=== PATIENT | male | born 1965 | race Caucasian/White ===

== ENCOUNTER 2021-06-15 07:14 | Emergency (ER) | payer MEDICAID ==
[~2021-06-15] VITALS: Ht 175.3 cm; Wt 71.2 kg
--- NOTE | 2021-06-15 07:36 | NUR ---
The patient is [id number], from street walking naked, admits on smoking meth this morning. The patient is alert and oriented x3. The patient denies SI/HI at this time. In room air and denies SOB. Respiraton regular and unlabored. Denies pain. Will continue to monitor the patient.
[2021-06-15 07:47] LABS: BASOPHILS # (AUTO) 0.1 K/uL (0.0-0.2); BASOPHILS % (AUTO) 0.7 % (0.0-2.0); EOSINOPHILS % (AUTO) 0.1 % (0.0-6.0); HEMATOCRIT 43 % (39-51); HEMOGLOBIN 14.7 g/dL (13.5-17.5); LYMPHOCYTES # (AUTO) 1.1 K/uL (0.8-4.8); LYMPHOCYTES % (AUTO) 12.3 % (20.0-44.0); MEAN CORPUSCULAR HGB CONC 35 g/dl (31.0-36.0); MEAN CORPUSCULAR VOLUME 106 fL (80-96); MONOCYTES % (AUTO) 10.7 % (2.0-12.0); NEUTROPHILS # (AUTO) 6.9 K/uL (1.8-8.9); NEUTROPHILS % (AUTO) 76.2 % (43.0-81.0); PLATELET COUNT (AUTO) 292 K/uL (150-450); RED BLOOD CELL COUNT(AUTO) 4.01 MIL/uL (4.5-6.0)
[2021-06-15 07:57] LABS: CALCIUM, SERUM 9.1 mg/dL (8.5-10.1); CARBON DIOXIDE 24 mmol/L (21-32); CHLORIDE 106 mmol/L (98-107); CREATININE 1.1 mg/dL (0.6-1.3); GLUCOSE 103 mg/dL (74-106); SODIUM SERUM 142 mmol/L (136-145); UREA NITROGEN, BLOOD 19 mg/dL (7-18)
--- NOTE | 2021-06-15 07:58 | NUR ---
covid swab done and sent to the lab
[2021-06-15 08:03] LABS: ACETAMINOPHEN 0 ug/ml (10-30); ALANINE AMINOTRANSFERASE 32 U/L (12-78); ALCOHOL, BLOOD < 3 mg/dL (0-0); ALKALINE PHOSPHATASE 82 U/L (46-116); ASPARTATE AMINOTRANSFERASE 25 U/L (15-37); BILIRUBIN,DIRECT 0.2 mg/dL (0.0-0.2); BILIRUBIN,TOTAL 0.6 mg/dL (0.2-1.0); TOTAL PROTEIN, SERUM 7.6 g/dL (6.4-8.2)
--- NOTE | 2021-06-15 09:09 | NUR ---
THE PATIENT UNABLE TO GIVE URINE AT THIS TIME. STARTED THAT HE WILL TRY TO URINATE LATER.
--- NOTE | 2021-06-15 09:10 | NUR ---
URINE COLLECTED AND SENT TO THE LAB
[2021-06-15 09:25] LABS: BILIRUBIN,URINE Negative (NEGATIVE); COLOR,URINE YELLOW (YELLOW); LEUKOCYTE ESTERASE ,URINE Negative (NEGATIVE); NITRITE, URINE Negative (NEGATIVE); PH,URINE 5.5 (5.0-8.0); PROTEIN,URINE 100 mg/dl (NEGATIVE); UGLUCOSE Negative (NEGATIVE); UROBILINOGEN,URINE 0.2 EU/dL (0.2)
[2021-06-15 09:40] LABS: RBC,URINE 0-2 /HPF (0-2)
[2021-06-15 09:41] LABS: BACTERIA,URINE Few /HPF (None Seen); SPERM,URINE Many /HPF (None Seen); SQUAMOUS EPITHELIAL CELL,UR Rare /HPF (None Seen)
--- NOTE | 2021-06-15 11:13 | NUR ---
THE PATIENT IS AWAKE, DENIES PAIN. RESPIRATION REGULAR AND UNLABORED.
--- NOTE | 2021-06-15 11:22 | NUR ---
ENDORSEMENT GIVEN TO NURSE MOBLEY FOR ROBERT
--- NOTE | 2021-06-15 11:25 | NUR ---
RESCUE INSTRUCTOR CALLED
--- NOTE | 2021-06-15 11:35 | NUR ---
GAME DESIGNER AT BEDSIDE
--- NOTE | 2021-06-15 12:23 | NUR ---
SS Consult: SS Consult requested for drug abuse and mental health resources. The pt. is a 56-year old male who was BIBR after pt. was found running around the street naked per EMR. The pt. appears unkempt, is A&O X4 and makes good eye contact. Pt.'s speech is slightly slurred with missing teeth. Pt.'s mood is slightly elevated, he appears restless. The pt. states he is experiencing anxiety and has intermittent AH that tell him "that people are after me". Pt. denies SI/HI and denies VH. SWATHI explored pt.'s mental health Hx. Pt. states he has a Hx. depression. Pt. states he has been prescribed: Lexapro, Trazedone, Gabapentin, which he has not been compliant with since his Meth relapse. SWATHI provided pt. with addiction resources and referral to rehab. Pt. is agreeable to outpatient rehab. SW will follow up. SWATHI explored pt.'s drug use. Patient states he relapsed "a couple of days ago" and began to use Methamphetamine. Per pt. he had been sober for about 4 months. Pt. stated he was hearing voices prior to the relapse and states he is not currently hearing voices. SWATHI explored pt.'s living situation. Pt. states he has been residing at home [[address] [place] [address]] where he resides with his mother, Belkys [phone]. Pt. states he is ambulatory and receives food stamps. SWATHI explored pt.'s support system. Pt. states his mother is his support system. Pt. denies having a therapist or psychiatrist. Plan: Pt. will be discharged back home [[address] [place] [address]] where he resides with his mother. SWATHI will refer pt. to outpatient rehab Tx. at [facility] [phone] Safety Plan: SWATHI provided pt. with mental alth resources and encouraged him to seek mental health services and educated him to call emergency services if he begins to feel unsafe. Patient was delia greement and expressed understanding. Pt. stated that if he ever begins to feel unsafe/ paranoid he will call [place] Mental Health/Crisis Line........[phone] or got to [facility] [[address], [place] [address] ] for mental health Tx. SWATHI provided pt. with addiction and mental health resources and he accepted them : ADDICTION RESOURCES For Drugs and Alcohol [facility] Substance Abuse Helpline([facility] Outpatient treatment, residential treatment, recovery support for youth and adults [facility] www.BigTreefamilycGasp Solar [facility] Teen programs for drug/alcohol education and support [facility]. Program for adults, sliding scale provides support and education OliveeMagin www.ChangePanda.The Spoken Thought [place]; Outpatient/residential treatment programs; transition to sober living Cri-Help www.cri-help.org [place]; Outpatient and residential treatment programs; transition to sober living [facility] [place]; Outpatient education and supportive programs for teens and adults [place] www.oasiswomensrecfredonia regional hospitaly.org Barbaracornelius; Residential treatment and work program for females only [place] www.[facility] center[facility].org [place]: Outpatient/residential treatment program for teens and young adults [facility] www.[facility].org Tarza Detox, inpatient, outpatient for adults and youth [facility], [facility]. [place]; Outpatient programs and referrals to community residential programs. Alcoholics Anonymous -SFV information and meeting and schedules www.aa-intergroup.org Og-Dnoa-Fgdhyts https://al-anon.org/ [place] support groups for family of alcoholics. Marijuana Anonymous www.madistrict6.org -SFV listing of meetings Narcotics Anonymous www.na.org SOBER LIVING RESOURCES [facility] www.soberhouLiving Proofg.net A non-profit agency that provides resources to recovery and sober living homes throughout [place], [place], [place] Men's Sober Living Homes: A Work in Progress, Jessi [facility] Recovery Advocates, [facility] Women's Sober Living Homes: [facility] [address] [place], [place] [facility] Coed Sober Living Homes: [facility] Counseling--Outpatient [facility] [address] [place] [address] (Specializes in in-depth psychotherapy for emotional distress: anxiety, depression, interpersonal conflicts, life transitions, childhood abuse) [facility] [address] [place] [address] (Assist with solving problem marital difficulties, separation & divorce, aging parents, & grief, chronic & terminal illness) [facility] [address] [place] [address] (Deal with loss & grief, anxiety, marital difficulties) Homebound/Mental Health Services [address] [place] [address] (Provide in-home mental services to people who are incapable of leaving their homes) Organization for Needs of the Elderly Senior Service/Resource Center [address] [place] [address] [facility] [address] [place] [address] Mental Health Services Cathy Lugo [address] [place] [address] Services: Outpatient therapy for children, teens, young adults, adults, older adults, and families; Psychiatric services, medication support Psychiatric Outpatient Services [facility] Partial Hospitalization and Intensive Outpatient Program (Managed Care and [place] Only)[address] [facility]. [facility] [phone] [facility] Partial Hospitalization and Outpatient Nexnnix71876 [facility]. [address] [place], [place] [phone] [facility] Partial Hospitalization and Outpatient Znkhxta9028 [place], [place] [phone] [facility] Mental Health Closplint Szt[address] [facility] [address] [place], [place] [phone] [facility] Partial Hospitalization and Outpatient Ibeuqfp59941 [place], [phone] Crisis and Hotline Telephone Numbers 24-Hour service unless stated [place] Crisis Hotlines: [facility] Mental Health/Crisis Line........[phone] Suicide Prevention Center (24 Hours).......[phone] Suicide Prevention Crisis Center.......[phone] (24 Hours) Assaults Against Women Hotline.........563.321.5524 (24 Hours -- [facility]...........[phone] (24 Hours) Child Abuse Hotline............391.942.6873 [facility] (24 Hours)..........[phone] Alcoholics Anonymous (24 Hours)..........[phone] Cocaine Anonymous (24 Hours)............[phone] Narcotics Anonymous (24 Hours)..........[phone] [address] [facility] [address] [place] [address]
--- NOTE | 2021-06-15 13:00 | NUR ---
PT PROVIDED WITH CLOTHING. PT ALSO OFFERED FOOD BUT HE REFUSED.
--- NOTE | 2021-06-15 14:13 | NUR ---
Margarito dao in [facility] - 06/15/21 at 1414 by ELIZ Patient discharged to home in stable condition. Written and verbal after care instructions given. Patient verbalizes understanding of instruction. Pt ambulatory with a steady gait
--- NOTE | 2021-06-15 14:13 | NUR ---
Patient discharged to home in stable condition. Written and verbal after care instructions given. Patient verbalizes understanding of instruction. Pt ambulatory with a steady gait
[2021-06-15 14:14] VITALS: BP 149/70
--- NOTE | 2021-06-15 14:22 | NUR ---
SWATHI faxed clinicals and Hospital Pre Screen to [facility] [phone] for referral to outpatient rehab or IOP [place]. TTC will follow up with pt. to complete intake process.
== END 2021-06-15 14:15 | disposition home or self-care (01) ==
LOC: EDBD 07:18 → ER 07:18
DX: F15.188 Other stimulant abuse with other stimulant-induced disorder (principal); F31.9 Bipolar disorder, unspecified; Z20.822 Contact with and (suspected) exposure to COVID-19; R00.0 Tachycardia, unspecified
CPT/HCPCS: 36415; 80048; 80076; 80143; 80307; 80320; 81001; 84484; 85025; 87426; 93005; 99284; C9803; G0480